=== PATIENT | female | born 1975 | race Caucasian/White ===

== ENCOUNTER 2022-06-04 12:21 | Outpatient (CLI) | payer BC, SELFPAY ==
--- NOTE | ~2022-06-04 | MMUS_ITS ---
EXAMINATION: MM diagnostic nigel BI w nadeem, US breast BI limited HISTORY: Pain of the outer breasts and bilateral axillae, history of reduction mammoplasty TECHNIQUE: Craniocaudal, mediolateral, and mediolateral oblique 3-D tomosynthesis images of the breas ts were performed and synthetic 2-D images were generated. CAD analysis was submitted and interpreted . High resolution limited bilateral breast ultrasound was performed. COMPARISON: 10/01/2020, 02/02/2019, 10/07/2017 BREAST PARENCHYMAL COMPOSITION: There are scattered areas of fibroglandular density. FINDINGS: MAMMOGRAPHIC FINDINGS: Scattered benign-appearing calcifications are present. Stable architectural distortion is noted in ezequiel th breasts, consistent with history of reduction mammoplasty. No suspicious mass, calcification, or a rchitectural distortion are identified. No mammographic correlate is identified for the patient's rep orted bilateral breast or axillary pain. ULTRASOUND: There is no focal abnormal cystic or solid mass in the outer breasts or either axilla to correspond w ith the patient's reported pain. IMPRESSION: 1. No specific mammographic or sonographic correlate is identified for the patient's reported breast pain. Further evaluation at this time should be based on clinical assessment. Continued follow-up phy sical examination is recommended. 2. Recommend routine screening mammography in one year. BI-RADS Category 2: Benign finding(s). Reviewed, dictated and finalized at location A. IMPRESSION: 1. No specific mammographic or sonographic correlate is identified for the sam ent's reported breast pain. Further evaluation at this time should be based on clinical assessment. Continued follow-up physical examination is recommended. 2. Recommend routine screening mammography in one year. BI-RADS Category 2: Benign finding(s).
== END 2022-06-04 12:22 | disposition home or self-care (01) ==
LOC: ANHIMG 12:25
PROVIDERS: PCP Physician Assistant; Visit Provider Student in an Organized Health Care Education/Training Program
DX: N64.4 Mastodynia (principal)
CPT/HCPCS: 76642; 77062; 77066; G0279